=== PATIENT | male | born 1990 | race American Indian/Alaskan Native ===

== ENCOUNTER 2022-03-07 12:03 | Emergency (ER) | payer SELFPAY ==
[2022-03-07 12:42] VITALS: BP 165/112
--- NOTE | 2022-03-07 12:46 | Event Note ---
ED Screening Note Date of service: 03/07/22 Time: 12:43 ED Screening Note: This initial assessment/diagnostic orders/clinical plan/treatment(s) is/are subject to change based on patients health status, clinical progression and re- assessment by fellow clinical providers in the ED. Further treatment and workup at subsequent clinical providers discretion. Patient/guardian urged not to elope from the ED as their condition may be serious if not clinically assessed and managed. Patient on dialysis and had to evacuate from [facility]. Due for Dialysis today. No symptoms. My Active Orders 03/07/22 12:40 Basic Metabolic Panel Stat Complete Blood Count Auto Diff Stat Magnesium Stat Phosphorous Stat Urinalysis Complete Stat Initial orders include:
[2022-03-07 13:13] LABS: Basophils # (Auto) 0.1 K/mm3 (0.0-0.1); Basophils % (Auto) 0.9 % (0.0-1.8); Eosinophils # (Auto) 0.2 K/mm3 (0.0-0.4); Eosinophils % (Auto) 3.9 % (0.0-4.3); Hematocrit 27.7 % (35.5-45.6); Hemoglobin 9.1 gm/dl (11.8-15.2); Lymphocytes % (Auto) 17.8 % (13.4-35.0); Mean Corpuscular HGB Conc 33 % (32-34); Mean Corpuscular Volume 87 fl (84-94); Monocytes # (Auto) 0.4 K/mm3 (0.0-0.8); Monocytes % (Auto) 6.2 % (0.0-7.3); Platelet Count 174 K/mm3 (140-440)
[2022-03-07 13:31] LABS: Calcium 8.8 mg/dL (8.4-10.2)
[2022-03-07 13:44] LABS: Bilirubin,Urine NEG (Negative); Blood,Urine SM (Negative); Color,Urine Straw (Yellow)
[2022-03-07 13:45] LABS: Urobilinogen,Urine < 2 mg/dL (<2.0)
[2022-03-07] MEDS ORDERED: LORazepam 2 MG/ML VIAL ONE (18:15)
== END 2022-03-07 23:59 | disposition left against medical advice (07) ==
LOC: ED 12:03
DX: Z99.2 Dependence on renal dialysis (principal); Z53.21 Procedure and treatment not carried out due to patient leaving prior to being seen by health care provider
CPT/HCPCS: 36415; 80048; 81001; 83735; 84100; 85025; J2060